=== PATIENT | female | born 1990 | race Caucasian/White ===

== ENCOUNTER → 2016-11-26 | Outpatient (CLI) | payer BC, OTHER ==
--- NOTE | 2016-11-27 18:10 | ECHOF ---
Referral Reason:R00.8 irregular heartbeat MEASUREMENTS -------- HEIGHT: 167.6 cm WEIGHT: 72.6 kg BP: 131/76 RVIDd: 2.9 cm (< 3.3) IVSd: 0.9 cm (0.6 - 1.1) LVIDd: 4.2 cm (3.9 - 5.3) LVPWd: 1.1 cm (0.6 - 1.1) IVSs: 1.3 cm LVIDs: 2.4 cm LVPWs: 1.8 cm LA Diam: 3.3 cm (2.7 - 3.8) Ao Diam: 2.9 cm (2.0 - 3.7) AV Cusp: 2.1 cm (1.5 - 2.6) MV EXCURSION: 12.972 mm (> 18.000) MV EF SLOPE: 83 mm/s (70 - 150) EPSS: 0.6 cm MV E Chung: 0.87 m/s MV DecT: 188 ms MV A Chung: 0.76 m/s MV E/A Ratio: 1.16 FINDINGS -------- Sinus rhythm. This was a technically good study. The left ventricular size is normal. Left ventricular wall thickness is normal. Overall left ventricular systolic function is normal with, an EF between 60 - 65 %. The right ventricle is normal in size. The left atrial size is normal. The right atrium is normal in size. The aortic valve is trileaflet and appears structurally normal. There is trace mitral regurgitation. Trace tricuspid regurgitation present. Trace/mild (physiologic) pulmonic regurgitation. The aortic root size is normal. Normal inferior vena cava with normal inspiratory collapse consistent with estimated right atrial pressure of 5 mmHg. There is no pericardial effusion. CONCLUSIONS -------- 1. Sinus rhythm. 2. There is trace mitral regurgitation. 3. Trace tricuspid regurgitation present. 4. Trace/mild (physiologic) pulmonic regurgitation. 5. The aortic root size is normal. 6. Normal inferior vena cava with normal inspiratory collapse consistent with estimated right atrial pressure of 5 mmHg. 7. There is no pericardial effusion. 8. This was a technically good study. 9. The left ventricular size is normal. 10. Left ventricular wall thickness is normal. 11. Overall left ventricular systolic function is normal with, an EF between 60 - 65 %. 12. The right ventricle is normal in size. 13. The left atrial size is normal. 14. The right atrium is normal in size. 15. The aortic valve is trileaflet and appears structurally normal. PC MAINTENANCE TECHNICIAN: Earlene Jimenez RDCS
== END | disposition home or self-care (01) ==
LOC: RADECHMAIN 14:58
PROVIDERS: ATTEND Internal Medicine
DX: I08.1 Rheumatic disorders of both mitral and tricuspid valves (principal)
CPT/HCPCS: 93306

== ENCOUNTER → 2017-12-07 | Outpatient (CLI) | payer OTHER ==
[2017-12-07 12:55] VITALS: BP 113/73; PULSE 97; TEMP 98.3; BMI 24.3
--- NOTE | 2017-12-07 14:03 | P.HPOB ---
History of Present Illness H&P Date: 12/07/17 Chief Complaint: The patient is here for her routine gynecologic exam and for control. This is a 27-year-old with an LMP of 11/30/2017. The patient is here to establish with this office. She is also requesting to be started on control pills. Patient previously used Nexplanon implant until February 2017. She has been using condoms for control since then. She also has used condoms regularly for STD prevention. She did not like the implant for control because she had frequent bleeding throughout the month while she was on it. Menses are regular every month. She has noticed some vulvar and vaginal pruritus after her menses. This typically has lasted just for a few days. This has occurred with her last 2 menses. She denies any significant discharge. Review of Systems The patient's weight has been stable over the last year. She denies respiratory , cardiac, or G.I. problems. Past Medical History Past Medical History: Asthma Additional Past Medical History / Comment(s): anemia. 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 She has not received the HPV vaccination. History of Any Multi-Drug Resistant Organisms: None Reported Past Surgical History: Tonsillectomy Past Anesthesia/Blood Transfusion Reactions: No Reported Reaction Past Psychological History: No Psychological Hx Reported Smoking Status: Never smoker Past Alcohol Use History: Occasional (0-2 per week) Past Drug Use History: None Reported Additional History: She is single and has been with her boyfriend since September 2017. She has had 2 other sexual partners in her lifetime. - Past Family History Mother Family Medical History: Cancer (Breast), Hypertension Brother(s) Additional Family Medical History / Comment(s): Kawasaki disease Father Family Medical History: Cancer (Skin) Additional Family Medical History / Comment(s): Her paternal grandfather had some type of blood clot. Medications and Allergies Home Medications Medication Instructions Recorded Confirmed Type No Known Home Medications 12/07/17 12/07/17 History Allergies Allergy/AdvReac Type Severity Reaction Status Date / Time No Known Allergies Allergy Verified 12/07/17 12:52 Exam Vital Signs Temp Pulse BP 12/07/17 12:53 98.3 F 97 113/73 Intake and Output 09/17/18 09/18/18 09/18/18 22:59 06:59 14:59 Other: Weight 68.492 kg Height 5'6", BMI 24.4. This is a well-developed well-nourished white female who is alert and oriented times 3 in no acute distress. HEENT: Within normal limits. NECK: Supple without mass or thyromegaly. CHEST AND LUNGS: Clear to auscultation. HEART: Regular rate and rhythm. BREASTS: Are without mass or discharge. AXILLARY EXAM: Negative for adenopathy. BACK: Negative for CVA tenderness. ABDOMEN: Soft, nontender, without palpable masses. PELVIC EXAM: Normal external genitalia. Cervix has a moderate ectropian without lesions. Vagina appears normal. There is a clear mucus discharge without older. There is no evidence of prolapse. The uterus is midposition, nongravid size and nontender. There are no palpable adnexal masses or tenderness. RECTAL EXAM: deferred EXTREMITIES: Nontender. What amounts are negative for trichomonas, hyphae, or clue cells. IMPRESSION: 1. 27-year-old female with normal gynecologic exam requesting control pills. 2. Intermittent vaginal and vulvar pruritus after her last 2 menses with no evidence of vaginitis at this time. PLAN: 1. Pap smear was performed. 2. Self breast awareness was discussed with the patient. 3. GC and Chlamydia screening was obtained from the cervix. 4. Blood STD screening will include HIV, RPR, hepatitis B surface antigen, and hepatitis C antibody. 5. STD prevention was discussed. I stressed the importance of limiting sexual partners and to use condoms if she is sexually active. 6. I recommended that she look into HPV vaccination and I recommended that she go to the health department for this. 7. The patient will be started on Tri-Sprintec. She will start on the Wednesday following the onset of her next normal menstrual period. I've recommended that she continue to use condoms even when she is on control pills. The prescription will be sentenced to [facility] pharmacy in [place]. She understands that this may slightly increase the risk for blood clots and symptoms of blood clots were reviewed with the patient. She was instructed to call if she has any problems with the control pills. 8. She will return in one year.
[2017-12-07 19:50] LABS: Hepatitis C IgG Antibody Non-Reactive (Non-Reactive)
[2017-12-07 20:54] LABS: HIV 1 AB Non-Reactive (Non-Reactive); HIV AB P24 Non-Reactive (Non-Reactive); HIV P24 AG Non-Reactive (Non-Reactive)
== END | disposition home or self-care (01) ==
LOC: WWCWWP 12:26
PROVIDERS: ATTEND Obstetrics & Gynecology
DX: Z11.3 Encounter for screening for infections with a predominantly sexual mode of transmission (principal)
CPT/HCPCS: 86780; 86803; 87340; 87390

== ENCOUNTER → 2019-01-20 | Outpatient (CLI) | payer OTHER ==
[2019-01-20 12:08] LABS: Basophils # (A) 0.3 k/uL (0-0.2); Basophils % (A) 3 %; Eosinophils # (A) 0.2 k/uL (0-0.7); Eosinophils % (A) 2 %; HCT 42.5 % (34.0-46.0); HGB 14.6 gm/dL (11.4-16.0); Lymphocytes % (A) 26 %; MCH 29.8 pg (25.0-35.0); MCHC 34.4 g/dL (31.0-37.0); MCV 86.7 fL (80.0-100.0); Mean Platelet Volume 7.9; Monocytes # (A) 0.5 k/uL (0-1.0); Monocytes % (A) 7 %; Neutrophils # (A) 4.6 k/uL (1.3-7.7); Neutrophils % (A) 59 %; Platelet Count 324 k/uL (150-450); RDW 11.7 % (11.5-15.5); WBC 7.8 k/uL (3.8-10.6)
[2019-01-20 12:15] LABS: ALT 29 U/L (9-52); AST 20 U/L (14-36); African American GFR (CKD) >90 (>60 ml/min/1.73 sqM); Albumin 4.6 g/dL (3.5-5.0); Albumin/Globulin Ratio 1.5; Alkaline Phosphatase 59 U/L (38-126); Anion Gap 9 mmol/L; Blood Urea Nitrogen 16 mg/dL (7-17); Carbon Dioxide 27 mmol/L (22-30); Chloride 105 mmol/L (98-107); Glucose 103 mg/dL (74-99); Potassium 3.8 mmol/L (3.5-5.1); Sodium 141 mmol/L (137-145); Total Bilirubin 0.5 mg/dL (0.2-1.3); Total Protein 7.6 g/dL (6.3-8.2)
[2019-01-20 13:47] LABS: Erythrocyte Sedimentation Rate 2 mm/hr (0-20)
== END | disposition home or self-care (01) ==
LOC: LABWHC1 11:37
PROVIDERS: ATTEND Physician Assistant
DX: J18.0 Bronchopneumonia, unspecified organism (principal); R06.00 Dyspnea, unspecified
CPT/HCPCS: 36415; 80053; 85025; 85379; 85652

== ENCOUNTER → 2019-02-14 | Outpatient (CLI) | payer OTHER ==
[2019-02-14 14:50] VITALS: BP 123/85; PULSE 88; RESP 16; TEMP 98
--- NOTE | 2019-02-14 15:32 | P.HPOB ---
History of Present Illness H&P Date: 02/14/19 Chief Complaint: The patient is here for her routine gynecologic exam and for control This is a 28-year-old with an LMP of 01/31/2019. The patient is without gynecologic complaints. She states she is doing well on the control pills. Menses are regular every month. Review of Systems The patient's weight has been stable over the last year. She denies respiratory, cardiac, or G.I. problems. Past Medical History Past Medical History: Asthma Additional Past Medical History / Comment(s): anemia. 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 She has completed 2 of the 3 HPV vaccination series. History of Any Multi-Drug Resistant Organisms: None Reported Past Surgical History: Tonsillectomy Past Anesthesia/Blood Transfusion Reactions: No Reported Reaction Past Psychological History: No Psychological Hx Reported Smoking Status: Never smoker Past Alcohol Use History: Occasional (3 per month) Past Drug Use History: None Reported Additional History: She is engaged to be and has been with her fianc since September 2017. Her wedding will be in September 2019. 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 - Past Family History Father Family Medical History: Cancer Additional Family Medical History / Comment(s): Skin cancer. Her paternal grandfather had some type of blood clot. Mother Family Medical History: Cancer, Hypertension Additional Family Medical History / Comment(s): Breast cancer. Brother(s) Additional Family Medical History / Comment(s): Kawasaki disease Medications and Allergies Home Medications Medication Instructions Recorded Confirmed Type Norgestimate-Ethinyl Estradiol 1 each PO DAILY #84 tablet 12/07/17 02/14/19 Rx [Tri-Sprintec Tablet] Iron 18 mg PO DAILY 02/14/19 02/14/19 History Allergies Allergy/AdvReac Type Severity Reaction Status Date / Time No Known Allergies Allergy Verified 12/07/17 12:52 Exam Vital Signs Temp Pulse Resp BP Pulse Ox 02/14/19 14:47 98.0 F 88 16 123/85 99 Intake and Output 02/14/19 02/14/19 02/14/19 06:59 14:59 22:59 Other: Weight 69.4 kg Height 5 feet 6 inches, weight 153 pounds, BMI 24.7. This is a well-developed well-nourished white female who is alert and oriented times 3 in no acute distress. HEENT: Within normal limits. NECK: Supple without mass or thyromegaly. CHEST AND LUNGS: Clear to auscultation. HEART: Regular rate and rhythm. BREASTS: Are without mass or discharge. AXILLARY EXAM: Negative for adenopathy. BACK: Negative for CVA tenderness. ABDOMEN: Soft, nontender, without palpable masses. PELVIC EXAM: Normal external genitalia. Cervix and vagina appear normal. There is a slightly increased amount of creamy cervical mucus. The cervix does not appear inflamed. There is no cervical motion tenderness. There is no evidence of prolapse. The uterus is midposition, nongravid size and nontender. There are no palpable adnexal masses or tenderness. RECTAL EXAM: Deferred. EXTREMITIES: Nontender. IMPRESSION: 1. 28-year-old female doing well on oral contraception. 2. Slight mucous discharge in the vagina. PLAN: 1. Pap smear was deferred since she had a normal one on 12/07/2017. 2. Self breast awareness was discussed with the patient. 3. GC and chlamydia screening was obtained from the cervix. 4. She will complete her HPV vaccination series. 5. Continue Tri-Sprintec for control. The electronic prescription will be sent to my her pharmacy in [place]. 6. She states she may be contemplating attempting in the next 2 years. We have discussed preconception planning. I have recommended that she take a multivitamin with folic acid. She will also keep a menstrual calendar. It will be important that she discuss it with her doctor that she may be attempting if she is prescribed any medication. 7. She was advised to return in one year for her annual well woman exam.
[2019-02-16 07:48] LABS: C. trachomatis,PCR Negative (Neg,Equiv); Chlamydia trachomatis Source Cervix; N. gonorrhoeae,PCR Negative (Neg,Equiv); Neisseria Source Cervix
== END | disposition home or self-care (01) ==
LOC: WWCWWP 14:36
PROVIDERS: ATTEND Obstetrics & Gynecology
DX: Z11.3 Encounter for screening for infections with a predominantly sexual mode of transmission (principal)
CPT/HCPCS: 87491; 87591

== ENCOUNTER 2019-11-16 21:18 | Emergency (ER) | payer BC, OTHER ==
[2019-11-16 21:32] VITALS: RESP 16
[2019-11-16] MEDS ORDERED: SODIUM CHLORIDE 0.9% 1,000 ML IV ONE (22:14)
[2019-11-16] MEDS ORDERED: Rhogam IMMUNE GLOBULIN 1,500 UNIT/1 ML IM ONE (22:15)
[2019-11-16 22:37] LABS: Basophils # (A) 0.1 k/uL (0-0.2); Basophils % (A) 0 %; Eosinophils # (A) 0.3 k/uL (0-0.7); Eosinophils % (A) 2 %; HCT 39.7 % (34.0-46.0); HGB 13.4 gm/dL (11.4-16.0); Lymphocytes # (A) 2.3 k/uL (1.0-4.8); Lymphocytes % (A) 18 %; MCH 29.1 pg (25.0-35.0); MCHC 33.8 g/dL (31.0-37.0); Mean Platelet Volume 9.1; Monocytes # (A) 0.8 k/uL (0-1.0); Monocytes % (A) 6 %; Neutrophils # (A) 9.2 k/uL (1.3-7.7); Neutrophils % (A) 72 %; Platelet Count 278 k/uL (150-450); RBC 4.61 m/uL (3.80-5.40); RDW 11.9 % (11.5-15.5); WBC 12.8 k/uL (3.8-10.6)
[2019-11-16 22:44] LABS: Appearance,Urine Bloody (Clear)
[2019-11-16 22:46] LABS: ALT 19 U/L (4-34); AST 25 U/L (14-36); African American GFR (CKD) >90 (>60 ml/min/1.73 sqM); Albumin 4.7 g/dL (3.5-5.0); Alkaline Phosphatase 51 U/L (38-126); Anion Gap 9 mmol/L; Blood Urea Nitrogen 8 mg/dL (7-17); Calcium 10.1 mg/dL (8.4-10.2); Carbon Dioxide 23 mmol/L (22-30); Chloride 105 mmol/L (98-107); Color,Urine Red; Glucose 98 mg/dL (74-99); Non-African American GFR(CKD) >90 (>60 ml/min/1.73 sqM); RBC,Urine >152 /hpf (0-5); Sodium 137 mmol/L (137-145); Total Bilirubin 0.3 mg/dL (0.2-1.3)
[2019-11-16 22:49] LABS: INR 1.1 (<1.2); Prothrombin Time 11.3 sec (9.0-12.0)
--- NOTE | 2019-11-16 22:57 | ED ---
General Adult HPI - General Chief complaint: Vaginal Bleeding Stated complaint: Poss Miscarriage Time Seen by Provider: 11/16/19 21:34 Source: patient Mode of arrival: ambulatory Limitations: no limitations - History of Present Illness Initial comments: 29-year-old female [facility] of vaginal bleeding. Patient reports that she is 5 weeks as confirmed with vaginal ultrasound yesterday; she is . Patient states she began spotting yesterday after the ultrasound and continued throughout the day. Developed lower abdominal cramping and heavy bleeding approximately 30 minutes prior to arrival. States she has saturated 2 pads in the last 30 minutes. Patient denies injury or trauma. Complains of mild nausea. Patient denies any recent rash, fever, chills, cough, shortness of breath, chest pain, diarrhea, constipation, back pain, numbness, tingling, dizziness, weakness, hematuria, dysuria, urinary urgency, urinary frequency, headache, visual changes, or any other complaints. - Related Data Home Medications Medication Instructions Recorded Confirmed Acetaminophen Tab [Tylenol] 650 mg PO BID PRN 11/16/19 11/16/19 Rcc-Xuou-Dyaxh Acid 1 cap PO DAILY 11/16/19 11/16/19 [-U Capsule (formulary)] Allergies Allergy/AdvReac Type Severity Reaction Status Date / Time cefaclor [From [facility]] Allergy Unknown Verified 11/16/19 22:35 Childhood Review of Systems ROS Statement: Those systems with pertinent positive or pertinent negative responses have been documented in the HPI. ROS Other: All systems not noted in ROS Statement are negative. Past Medical History Past Medical History: Asthma Additional Past Medical History / Comment(s): anemia. 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 She has completed 2 of the 3 HPV vaccination series. History of Any Multi-Drug Resistant Organisms: None Reported Past Surgical History: Tonsillectomy Past Anesthesia/Blood Transfusion Reactions: No Reported Reaction Past Psychological History: No Psychological Hx Reported Past Alcohol Use History: Occasional Past Drug Use History: None Reported - Past Family History Father Family Medical History: Cancer Additional Family Medical History / Comment(s): Skin cancer. Her paternal grandfather had some type of blood clot. Mother Family Medical History: Cancer, Hypertension Additional Family Medical History / Comment(s): Breast cancer. Brother(s) Additional Family Medical History / Comment(s): Kawasaki disease General Exam Limitations: no limitations General appearance: alert (this is a), in no apparent distress, other Head exam: Present: atraumatic, normocephalic, normal inspection Eye exam: Present: normal appearance, PERRL, EOMI. Absent: scleral icterus, conjunctival injection, periorbital swelling ENT exam: Present: normal exam, mucous membranes moist Respiratory exam: Present: normal lung sounds bilaterally. Absent: respiratory distress, wheezes, rales, rhonchi, stridor Cardiovascular Exam: Present: regular rate, normal rhythm, tachycardia, normal heart sounds. Absent: systolic murmur, diastolic murmur, rubs, gallop, clicks GI/Abdominal exam: Present: soft, normal bowel sounds Speculum exam: Present: vaginal bleeding, other (copious amounts of bright red vaginal bleeding with several clots present. Possible tissue removed from cervical os which is closed. ) Neurological exam: Present: alert, oriented X3 Psychiatric exam: Present: anxious, other (tearful) Skin exam: Present: warm, dry, intact Course Vital Signs 11/16/19 11/16/19 21:25 23:34 Temperature 99.3 F 98.2 F Pulse Rate 108 H 86 Respiratory 16 16 Rate Blood Pressure 126/87 98/63 O2 Sat by Pulse 97 97 Oximetry Medical Decision Making - Medical Decision Making 29-year-old female presents to the emergency department [facility] with complaints of heavy vaginal bleeding. Patient is 5 weeks , . Pelvic exam significant for copious amounts of bright red bleeding with many large clots, cervical os was closed. Ultrasound obtained and showed no intrauterine gestational sac visualized, no evidence of ectopic . [place] [address].3. Patient was given RhoGAM IM prior to departure for lab confirmed O negative blood. Bleeding did decrease and patient was comfortable while in the department. Instructed to call [facility]NAGER [facility] in the morning for follow-up. Order provided for repeat hCG in 48 hours. Patient was instructed to return to the emergency department if saturating more than 1 pad per hour for greater than 3 hours, or if she developed dizziness, or increased discomfort. Patient verbalizes understanding and agrees with this plan. - Lab Data Result diagrams: 11/16/19 22:28 11/16/19 22:28 Lab Results 11/16/19 11/16/19 11/16/19 Range/Units 22:25 22:28 22:28 WBC 12.8 H (3.8-10.6) k/uL RBC 4.61 (3.80-5.40) m/uL Hgb 13.4 (11.4-16.0) gm/dL Hct 39.7 (34.0-46.0) % MCV 86.0 (80.0-100.0) fL MCH 29.1 (25.0-35.0) pg MCHC 33.8 (31.0-37.0) g/dL RDW 11.9 (11.5-15.5) % Plt Count 278 (150-450) k/uL Neutrophils % 72 % Lymphocytes % 18 % Monocytes % 6 % Eosinophils % 2 % Basophils % 0 % Neutrophils # 9.2 H (1.3-7.7) k/uL Lymphocytes # 2.3 (1.0-4.8) k/uL Monocytes # 0.8 (0-1.0) k/uL Eosinophils # 0.3 (0-0.7) k/uL Basophils # 0.1 (0-0.2) k/uL PT 11.3 (9.0-12.0) sec INR 1.1 (<1.2) APTT 25.0 (22.0-30.0) sec Sodium (137-145) mmol/L Potassium (3.5-5.1) mmol/L Chloride (98-107) mmol/L Carbon Dioxide (22-30) mmol/L Anion Gap mmol/L BUN (7-17) mg/dL Creatinine (0.52-1.04) mg/dL Est GFR (CKD-EPI)AfAm (>60 ml/min/1.73 sqM) Est GFR (CKD-EPI)NonAf (>60 ml/min/1.73 sqM) Glucose (74-99) mg/dL Calcium (8.4-10.2) mg/dL Total Bilirubin (0.2-1.3) mg/dL AST (14-36) U/L ALT (4-34) U/L Alkaline Phosphatase (38-126) U/L Total Protein (6.3-8.2) g/dL Albumin (3.5-5.0) g/dL HCG, Quant mIU/mL Urine Color Urine Appearance (Clear) Urine RBC (0-5) /hpf Blood Type O Negative Blood Type Recheck O Neg Bld Type Recheck Status No Antibody Screen NEGATIVE 11/16/19 11/16/19 Range/Units 22:28 22:28 WBC (3.8-10.6) k/uL RBC (3.80-5.40) m/uL Hgb (11.4-16.0) gm/dL Hct (34.0-46.0) % MCV (80.0-100.0) fL MCH (25.0-35.0) pg MCHC (31.0-37.0) g/dL RDW (11.5-15.5) % Plt Count (150-450) k/uL Neutrophils % % Lymphocytes % % Monocytes % % Eosinophils % % Basophils % % Neutrophils # (1.3-7.7) k/uL Lymphocytes # (1.0-4.8) k/uL Monocytes # (0-1.0) k/uL Eosinophils # (0-0.7) k/uL Basophils # (0-0.2) k/uL PT (9.0-12.0) sec INR (<1.2) APTT (22.0-30.0) sec Sodium 137 (137-145) mmol/L Potassium 4.0 (3.5-5.1) mmol/L Chloride 105 (98-107) mmol/L Carbon Dioxide 23 (22-30) mmol/L Anion Gap 9 mmol/L BUN 8 (7-17) mg/dL Creatinine 0.49 L (0.52-1.04) mg/dL Est GFR (CKD-EPI)AfAm >90 (>60 ml/min/1.73 sqM) Est GFR (CKD-EPI)NonAf >90 (>60 ml/min/1.73 sqM) Glucose 98 (74-99) mg/dL Calcium 10.1 (8.4-10.2) mg/dL Total Bilirubin 0.3 (0.2-1.3) mg/dL AST 25 (14-36) U/L ALT 19 (4-34) U/L Alkaline Phosphatase 51 (38-126) U/L Total Protein 7.0 (6.3-8.2) g/dL Albumin 4.7 (3.5-5.0) g/dL HCG, Quant 48372.3 mIU/mL Urine Color Red Urine Appearance Bloody H (Clear) Urine RBC >152 H (0-5) /hpf Blood Type Blood Type Recheck Bld Type Recheck Status Antibody Screen - Radiology Data Radiology results: report reviewed Pelvic ultrasound was obtained. Report was reviewed in its entirety. Impression by Dr. Oneal shows no intrauterine gestational sac. No evidence of ectopic . Mild endometrial thickening measures up to 1.5 cm. Disposition Clinical Impression: Threatened Disposition: HOME SELF-CARE Condition: Good Instructions (If sedation given, give patient instructions): Threatened Miscarriage (ED) Additional Instructions: Have repeat lab tests performed in 2 days. Follow-up with [facility] for recheck in 1-2 days. Maintain pelvic rest until follow-up with your MANAGER [facility]ING. Call Dr. Villatoro in the morning and inform her of your bleeding and symptoms. Return to the emergency department immediately for any new, worsening, or concerning symptoms. Is patient prescribed a controlled substance at d/c from ED?: No Referrals: Samm Bonilla MD [Primary Care Provider] - 1-2 days Magalys Villatoro MD [STAFF PHYSICIAN] - 1-2 days Time of Disposition: 00:12
--- NOTE | 2019-11-16 23:20 | US ---
EXAMINATION TYPE: Transabdominal DATE OF EXAM: 11/16/2019 11:03 PM COMPARISON: NONE CLINICAL HISTORY: Vag bleeding, 5 weeks. heavy vaginal bleeding today, pelvic pain. patient states ul trasound done at doctors office yesterday and a 6 week gestational sac was visualized EXAM PERFORMED: Transvaginal (TV) and Transabdominal (TA) EXAM MEASUREMENTS: GESTATIONAL AGE / DATING Physician Established: Not yet established Dates by LMP: (8 weeks/6 days) EDC: 06/21/20 Dates by First Scan: No previous scan here Dates by Current Scan for: No IUP seen at this time MATERNAL ANATOMY Uterus: 9.0 x 5.2 x 4.9cm Right Ovary: 3.6 x 1.9 x 2.0cm Left Ovary: 2.5 x 1.4 x 1.6cm Post CDS / Adnexa: appears wnl Presence of free fluid: no Presence of corpus luteal cyst: yes, complex area right ovary = 2.4 x 2.1 x 2.3cm GESTATION / SURVEY IUP: No IUP seen at this time Date of LMP: 09/15/19 Beta HcG (if available): Not available at this time No evidence of IUP at this time. Heterogeneous, thickened and vascular endometrium. Corpus luteum right ovary IMPRESSION: No intrauterine gestational sac. No evidence of ectopic . Mild endometrial thickening measur es up to 1.5 cm.
[2019-11-16 23:35] VITALS: BP 98/63; PULSE 86; TEMP 98.2
[2019-11-16 23:40] LABS: HCG,Quantitative Serum 25750.3 mIU/mL
== END 2019-11-17 00:15 | disposition home or self-care (01) ==
LOC: EC 21:18
DX: O20.0 Threatened abortion (principal); Z3A.01 Less than 8 weeks gestation of pregnancy; Z88.1 Allergy status to other antibiotic agents
CPT/HCPCS: 36415; 76801; 76817; 80053; 84702; 85025; 85610; 85730; 86850; 86900; 86901; 87086; 96360; 96372; 99284

== ENCOUNTER → 2020-02-27 | Outpatient (CLI) | payer BC, OTHER ==
[~2020-02-27] MED LIST: Pre Op ABX Message 1 EACH MISC MISCELLANE ONE
[2020-02-27 13:59] LABS: Basophils % (A) 0 %; Eosinophils # (A) 0.1 k/uL (0-0.7); Eosinophils % (A) 1 %; HGB 12.8 gm/dL (11.4-16.0); Lymphocytes # (A) 1.4 k/uL (1.0-4.8); Lymphocytes % (A) 20 %; MCHC 33.7 g/dL (31.0-37.0); MCV 79.9 fL (80.0-100.0); Mean Platelet Volume 9.2; Monocytes # (A) 0.5 k/uL (0-1.0); Monocytes % (A) 7 %; Neutrophils # (A) 4.9 k/uL (1.3-7.7); Neutrophils % (A) 70 %; Platelet Count 237 k/uL (150-450); RBC 4.76 m/uL (3.80-5.40); RDW 13.4 % (11.5-15.5); WBC 6.9 k/uL (3.8-10.6)
[2020-02-28 11:35] LABS: APTT 46 Sec(s) (<43); APTT 1:1 Mix 38 Sec(s) (<43); Dilute Russell Viper Venom 42 Sec(s) (<44)
== END | disposition home or self-care (01) ==
LOC: LABPAT 12:29
PROVIDERS: ATTEND Obstetrics & Gynecology
DX: Z01.818 Encounter for other preprocedural examination (principal); O02.1 Missed abortion
CPT/HCPCS: 81241; 85025; 85300; 85613; 85730; 86038; 86850; 86870; 86880; 86900; 86901

== ENCOUNTER → 2020-07-05 | Outpatient (CLI) | payer BC, OTHER ==
--- NOTE | 2020-07-05 10:18 | US ---
EXAMINATION TYPE: Ultrasound OB <= 14 weeks transvaginal DATE OF EXAM: 07/05/2020 10:02 AM COMPARISON: NONE CLINICAL HISTORY: 30-year-old female O76.1 Absent heartbeats. No heart tones at office, , multipl e miscarriages in the past 8 months EXAM PERFORMED: OBTA/OBTV FINDINGS: EXAM MEASUREMENTS: GESTATIONAL AGE / DATING Physician Established: Not yet established Dates by LMP: (10 weeks/5 days) EDC: 01/26/2021 Dates by First Scan: No previous this is first scan Handy Worker notes: Dates by Current Scan: demise MATERNAL ANATOMY Uterus: 10.5 x 8.7 x 9.3cm Right Ovary: 2.1 x 1.9 x 1.3cm Left Ovary: not seen Post CDS / Adnexa: wnl Presence of free fluid: no Presence of corpus luteal cyst: 1.6cm on the right Presence of subchorionic bleed: no GESTATION / SURVEY CRL: 3.1cm, 10 weeks/0 days) MSD: multiple septation seen within gestational sac Yolk Sac (normal less than 6mm): not seen Heart Rate: 0 by M-mode Doppler. No color Doppler activity. IUP: Demise Date of LMP: 04/21/2020 IMPRESSION: Intrauterine . pole measures 3.1 cm corresponding to 10 weeks 0 days. However, there i s no cardiac activity. There are also multiple septations within the gestational sac. No yolk sac is identified. Findings in keeping with demise.
== END | disposition home or self-care (01) ==
LOC: RADUSWWP 09:42
PROVIDERS: ATTEND Obstetrics & Gynecology
DX: O36.8310 Maternal care for abnormalities of the fetal heart rate or rhythm, first trimester, not applicable or unspecified (principal); Z3A.10 10 weeks gestation of pregnancy
CPT/HCPCS: 76801; 76817

== ENCOUNTER → 2020-07-08 | Outpatient (CLI) | payer BC, OTHER ==
[2020-07-08 10:28] LABS: Basophils % (A) 0 %; Eosinophils # (A) 0.1 k/uL (0-0.7); Eosinophils % (A) 2 %; HCT 33.5 % (34.0-46.0); HGB 10.9 gm/dL (11.4-16.0); Lymphocytes # (A) 1.4 k/uL (1.0-4.8); Lymphocytes % (A) 27 %; MCH 24.1 pg (25.0-35.0); MCHC 32.5 g/dL (31.0-37.0); Mean Platelet Volume 9.9; Microcytosis Slight; Monocytes # (A) 0.4 k/uL (0-1.0); Monocytes % (A) 8 %; Neutrophils # (A) 3.3 k/uL (1.3-7.7); Neutrophils % (A) 63 %; Platelet Count 253 k/uL (150-450); RBC 4.53 m/uL (3.80-5.40); RDW 15.3 % (11.5-15.5); WBC 5.3 k/uL (3.8-10.6)
== END | disposition home or self-care (01) ==
LOC: LABPAT 08:50
PROVIDERS: ATTEND Obstetrics & Gynecology
DX: Z01.818 Encounter for other preprocedural examination (principal); O02.1 Missed abortion; Z3A.00 Weeks of gestation of pregnancy not specified
CPT/HCPCS: 36415; 85025; 86850; 86900; 86901

== ENCOUNTER 2020-07-10 10:52 | Day surgery (SDC) | payer BC, OTHER ==
[2020-07-09 08:45] VITALS: BMI 24.2
[~2020-07-10 10:52] MED LIST changes: +DEXAMETHASONE SOD PHOSPHATE 4 MG/ML 1 ML VIAL IV ONE; +LIDOCAINE 1% (10MG/ML) FOR IV START INTRADERMA PRN; +ONDANSETRON 4 MG/2 ML VIAL IVP ONE
[2020-07-10] MEDS: LACTATED RINGERS 1,000 ML IV SCH ×2 (11:32→11:58)
[2020-07-10] MEDS ORDERED: PROPOFOL 10 MG/ML 20 ML VIAL IV ONE (11:53)
[2020-07-10] MEDS ORDERED: fentaNYL (PF) 50 MCG/ML 2 ML AMP ONE (11:53)
[2020-07-10] MEDS ORDERED: LIDOCAINE 1% INJ 10MG/ML (20 ML MDV) ONE (11:53)
[2020-07-10] MEDS ORDERED: MIDAZOLAM 2 MG/2 ML VIAL ONE (11:53)
[2020-07-10] MEDS ORDERED: KETOROLAC 15 MG/ML 1 ML VIAL ONE (11:53)
--- NOTE | 2020-07-10 12:30 | P.OP ---
Date of Procedure: 07/10/20 Preoperative Diagnosis: Missed AB at 10-3/7 weeks' gestation, third spontaneous miscarriage, Rh- blood type Postoperative Diagnosis: Same Procedure(s) Performed: Suction dilatation and curettage, Anora chromosomal testing per patient and Dr. Nye's request Anesthesia: BIA Surgeon: Magalys Villatoro Estimated Blood Loss (ml): 200 IV fluids (ml): 400 Urine output (ml): 100 Pathology: other (Intrauterine contents) Condition: stable Disposition: PACU Description of Procedure: Patient is brought to the operating suite where a general anesthetic is administered without difficulty. She's placed in the dorsal lithotomy position. The appropriate timeout is performed to assure proper patient and procedural identification. Patient is Rh-, Rogaine has already been given in the office. Antibiotics are not deemed necessary. Examination under anesthesia reveals an anteverted uterus of approximately 12 weeks size. Cervix, vagina, perineal bodies are all prepped and draped in usual sterile fashion. Bladder is drained for 100 mL of clear yellow urine. Weighted speculum was placed into the vagina. Anterior lip of the cervix is grasped with a double- tooth tenaculum. Cervix sounds to a depth of 16 cm in the anteverted position. Cervix is gently and systematically dilated using Hanks dilators. A #9 curved sterile curette is placed to the dome of the fundus and under appropriate pressures the uterine cavity is curettaged. A sharp medium sized curette is used and all 4 quadrants to assure that all products of conception had been removed. The curved plastic curet is once again placed, suction reveals no additional tissue or bleeding. Instrumentation is removed from the vagina. Cervix is clean and dry. All sponge needle and enhancement counts are correct. Patient is brought back to recovery room in very good condition with stable vital signs including a blood pressure of 100/57 pulse 89 and 99% O2 saturation. She will follow-up with me in the office in 2 weeks. Tissue was sent for chromosomal analysis per patient's request. Copies will be sent to Dr. Magalys Nye at [facility], infertility specialist. Toradol is given prior to leaving the operative room.
[2020-07-10 12:38] VITALS: TEMP 97.1
[2020-07-10 13:08] VITALS: RESP 18
[2020-07-10 13:36] VITALS: BP 110/78; PULSE 78
== END 2020-07-10 13:53 | disposition home or self-care (01) ==
LOC: OR 10:52
PROVIDERS: ATTEND Obstetrics & Gynecology
DX: O02.1 Missed abortion (principal); Z67.20 Type B blood, Rh positive; Z86.16 Personal history of COVID-19; G43.909 Migraine, unspecified, not intractable, without status migrainosus; M41.9 Scoliosis, unspecified; Z90.89 Acquired absence of other organs; Z82.49 Family history of ischemic heart disease and other diseases of the circulatory system; Z83.3 Family history of diabetes mellitus; Z80.3 Family history of malignant neoplasm of breast; Z98.890 Other specified postprocedural states; Z79.82 Long term (current) use of aspirin; Z88.1 Allergy status to other antibiotic agents; Z91.040 Latex allergy status
CPT/HCPCS: 88305; 59820; J2250; J1100; J2405; J2001; J3010; J1885; J2704; 86850; 86900; 86901

== ENCOUNTER → 2020-07-26 | Outpatient (CLI) | payer BC, OTHER | END | disposition home or self-care (01) | LOC: LABWHC1 15:47 | PROVIDERS: ATTEND Obstetrics & Gynecology | DX: O02.1 Missed abortion (principal); Z3A.00 Weeks of gestation of pregnancy not specified | CPT/HCPCS: 36415; 84702 ==

== ENCOUNTER → 2020-09-25 | Outpatient (CLI) | payer BC, OTHER ==
[2020-09-26 03:01] LABS: Cardiolipin Ab IgG Interp NEGATIVE (NEGATIVE); Cardiolipin Ab IgM Interp NEGATIVE (NEGATIVE); Cardiolipin IgA Antibody <2.0 U/mL; Cardiolipin IgM Antibody <1.5 U/mL
[2020-09-27 09:41] LABS: Protein C (Activity) 101 % (71-138)
== END | disposition home or self-care (01) ==
LOC: LABWHC1 16:08
PROVIDERS: ATTEND Obstetrics & Gynecology
DX: N96 Recurrent pregnancy loss (principal)
CPT/HCPCS: 36415; 81240; 85303; 85306; 86147

== ENCOUNTER 2021-07-14 15:45 | Emergency (ER) | payer BC, OTHER ==
[2021-07-14] MEDS ORDERED: ACETAMINOPHEN TAB 500 MG TAB PO STA (17:10)
[2021-07-14] MEDS ORDERED: SODIUM CHLORIDE 0.9% 1,000 ML IV ONE (20:11)
--- NOTE | 2021-07-14 20:11 | ED ---
Fever HPI - General Chief Complaint: Fever Stated Complaint: Fever, Nausea, Weakness, Back pain, 15 weeks preg. Time Seen by Provider: 07/14/21 19:47 Source: patient Mode of arrival: ambulatory Limitations: no limitations - History of Present Illness Initial Comments: Denice is a pleasant 31-year-old female currently 15 weeks from that was given CV IVF. Patient since the emergency department today for fever back pains generalized feeling unwell. The patient is not vaccinated for COVID-19. - Related Data Home Medications Medication Instructions Recorded Confirmed Nhx-Pgmq-Pesmc Acid 1 cap PO DAILY 11/16/19 07/14/21 [-U Capsule (formulary)] Allergies Allergy/AdvReac Type Severity Reaction Status Date / Time cefaclor [From [facility]] Allergy Unknown Verified 07/14/21 21:28 Childhood latex Allergy red skin Verified 07/14/21 21:28 Review of Systems ROS Statement: Those systems with pertinent positive or pertinent negative responses have been documented in the HPI. ROS Other: All systems not noted in ROS Statement are negative. Past Medical History Past Medical History: Asthma, Musculoskeletal Disorder Additional Past Medical History / Comment(s): current missed AB, anemia. hx miscarriage Oct 2019, PAST TRANSPORTATION OFFICER HISTORY: She has no history of STDs. She has completed 2 of the 3 HPV vaccination series, scoliosis,DDD, migraines History of Any Multi-Drug Resistant Organisms: None Reported Past Surgical History: Tonsillectomy Additional Past Surgical History / Comment(s): wisdom teeth removed, oral surg. as child Past Anesthesia/Blood Transfusion Reactions: No Reported Reaction Past Psychological History: No Psychological Hx Reported Smoking Status: Never smoker Past Alcohol Use History: None Reported Past Drug Use History: None Reported - Past Family History Father Family Medical History: No Reported History Additional Family Medical History / Comment(s): Skin cancer. Her paternal grandfather had some type of blood clot. Mother Family Medical History: Cancer, Hypertension Additional Family Medical History / Comment(s): Breast cancer. Brother(s) Additional Family Medical History / Comment(s): Kawasaki disease General Exam - General Exam Comments Initial Comments: Physical Exam GENERAL: Febrile, appears ill HENT: Normocephalic, Atraumatic. EYES: PERRL, EOMI PULMONARY: Unlabored respirations. CARDIOVASCULAR: Tachycardic Warm and well perfused extremities ABDOMEN: Gravid abdomen SKIN: No rashes or bruising : Deferred NEUROLOGIC: Alert and oriented Normal speech Normal gait MUSCULOSKELETAL: Moving all extremities with no apparent injury PSYCHIATRIC: No SI/HI Limitations: no limitations Course Vital Signs 07/14/21 07/14/21 17:05 22:52 Temperature 101.5 F H 98.7 F Pulse Rate 117 H 89 Respiratory 20 16 Rate Blood Pressure 140/80 118/74 O2 Sat by Pulse 100 98 Oximetry Medical Decision Making - Medical Decision Making Patient was seen and evaluated, fever was treated with Tylenol Patient's positive or COVID-19, IV fluids were ordered Risks and benefits of monoclonal antibodies were discussed patient would like to pursue treatment with monoclonal antibodies Patient received IV fluids, she received monoclonal shortly after the IV push she reported feeling flushed and chest pressure in her chest, there is concerned she may be having a ALLERGIC reaction so she was given steroids and Benadryl. Upon my evaluation she is feeling better only moments later, she had no wheezing, no rashes no nausea or vomiting. Patient was observed for another approximately 90 minutes with no further reaction she is feeling well, fever resolved heart rate improved bedside ultrasound reveals an active fetus with a heart rate of 170 at this time patient feels reassured and is comfortable with plan for discharge home and outpatient follow-up with OB - Lab Data Lab Results 07/14/21 Range/Units 17:16 Coronavirus (PCR) Detected A (Not Detectd) Disposition Clinical Impression: COVID-19 affecting in second trimester Disposition: HOME SELF-CARE Condition: Stable Additional Instructions: Continue Tylenol 650mg every 6hrs Notify OB tomorrow of diagnosis Is patient prescribed a controlled substance at d/c from ED?: No Referrals: Nohemi Ny MD [Primary Care Provider] - 1-2 days
[2021-07-14] MEDS ORDERED: BEBTELOVIMAB (EUA) 175 MG/2 ML VIAL IV ONE (21:30)
[2021-07-14] MEDS ORDERED: methylPREDNISolone SOD SUCCI 125 MG/2 ML VIAL IV STA (21:33)
[2021-07-14] MEDS ORDERED: diphenhydrAMINE 50 MG/ML 1 ML VIAL IVP STA (21:33)
[2021-07-14 22:53] VITALS: BP 118/74; PULSE 89; RESP 16; TEMP 98.7
== END 2021-07-14 23:14 | disposition home or self-care (01) ==
LOC: EC 15:45
DX: O98.512 Other viral diseases complicating pregnancy, second trimester (principal); U07.1 COVID-19; O99.512 Diseases of the respiratory system complicating pregnancy, second trimester; J45.909 Unspecified asthma, uncomplicated; Z28.310 Unvaccinated for COVID-19; Z3A.15 15 weeks gestation of pregnancy
CPT/HCPCS: 87635; 99283; 96374; 96375; 96361; J1200; J2930; Q0222

== ENCOUNTER → 2022-04-08 | Outpatient (CLI) | payer BC, OTHER | END | disposition home or self-care (01) | LOC: LABWHC1 16:12 | PROVIDERS: ATTEND Obstetrics & Gynecology Reproductive Endocrinology | DX: Z01.812 Encounter for preprocedural laboratory examination (principal) | CPT/HCPCS: 36415; 82306; 83036 ==

== ENCOUNTER 2022-12-24 12:00 | Outpatient (CLI) | payer BC, OTHER ==
[2022-12-24 13:28] LABS: ALT 20 U/L (4-34); AST 31 U/L (14-36); African American GFR (CKD) >90 (>60 ml/min/1.73 sqM); Basophils % (A) 0 %; Blood Urea Nitrogen 7 mg/dL (7-17); Eosinophils # (A) 0.1 k/uL (0-0.7); Eosinophils % (A) 1 %; HCT 35.9 % (34.0-46.0); HGB 12.1 gm/dL (11.4-16.0); LDH 226 U/L (120-246); Lymphocytes # (A) 1.3 k/uL (1.0-4.8); Lymphocytes % (A) 16 %; MCH 25.7 pg (25.0-35.0); MCHC 33.6 g/dL (31.0-37.0); MCV 76.5 fL (80.0-100.0); Mean Platelet Volume 12.8; Microcytosis Slight; Monocytes # (A) 0.5 k/uL (0-1.0); Monocytes % (A) 6 %; Neutrophils # (A) 5.9 k/uL (1.3-7.7); Neutrophils % (A) 75 %; Non-African American GFR(CKD) >90 (>60 ml/min/1.73 sqM); RBC 4.69 m/uL (3.80-5.40); RDW 15.5 % (11.5-15.5); Uric Acid 5.4 mg/dL (3.7-7.4); WBC 7.9 k/uL (3.8-10.6)
[2022-12-24 13:40] LABS: Appearance,Urine Clear (Clear); Bilirubin,Urine Negative (Negative); Blood,Urine Negative (Negative); Color,Urine Colorless; Glucose,Urine (UA) Negative (Negative); Ketones,Urine Negative (Negative); Leukocyte Esterase,Urine Negative (Negative); Nitrite,Urine Negative (Negative); PH, Urine 6.5 (5.0-8.0); Protein,Urine Negative (Negative); Specific Gravity,Urine 1.005 (1.001-1.035); Urobilinogen,Urine <2.0 mg/dL (<2.0)
[2022-12-24 13:59] LABS: Creatinine,Urine Random 24.3 mg/dL; Protein/Creatinine Ratio,Urine 0.412
[2022-12-24 13:59] LABS: Platelet Count 174 k/uL (150-450)
[2022-12-24 14:00] VITALS: BP 121/83; PULSE 88; RESP 16; TEMP 97.2
[2022-12-24 14:00] LABS: Large Platelets Present
--- NOTE | 2022-12-28 08:49 | P.MSEPDOC ---
Presenting Problems - Arrival Data Date of Arrival on Unit: 12/24/22 Time of Arrival on Unit: 12:00 Mode of Transport: Ambulatory - Complaint OB-Reason for Admission/Chief Complaint: PIH Comment: with written script Medical History - Information : 6 Para: 2 Term: 1 : 1 Abortions: Spontaneous or Elective: 3 Number of Living Children: 1 - Gestational Age Gestational Age by LACY (wks/days): 36 Weeks and 1 Days - History Comment: Gestational Hypertension Review of Systems - Review of Systems Constitutional: No problems Breast: No problems ENT: No problems Cardiovascular: No problems Respiratory: No problems Gastrointestinal: No problems Genitourinary: No problems Musculoskeletal: No problems Neurological: No problems Skin: No problems Vital Signs - Temperature Temperature: 97.2 F Temperature Source: Temporal Artery Scan - Pulse Right Sitting Pulse Rate: 88 Pulse Assessment Method: Automatic Cuff - Respirations Respiratory Rate: 16 Oxygen Delivery Method: Room Air O2 Sat by Pulse Oximetry: 97 - Blood Pressure Right Arm Sitting Blood Pressure: 121/83 Blood Pressure Mean: 95 Blood Pressure Source: Automatic Cuff Medical Screen Scoring - Uterine Contractions Frequency From (mins): 2 Frequency To (mins): 4 Duration From (seconds): 40 Duration To (seconds): 60 Intensity: Mild Resting: Soft to palpation - Assessment - Baby A Baseline FHR: 135 Heart Rate - NICHD Category: Category I (Normal) NST: Reactive Physician Notification - Physician Notified Physician Notified Date: 12/24/22 Physician Notified Time: 14:10 Physician: Mari Casillas Order Received: Yes Maternal Triage Index - Maternal Triage Index Presenting for scheduled procedure w/no complaint: No - Stat/Priority 1 Stat Priority 1: No - Urgent/Priority 2 Urgent Priority 2: No - Prompt/Priority 3 Prompt Priority 3: Yes Criteria Met for Priority 3: 36.1 Disposition - Disposition OB Disposition: Triage, Discharge to home, Written follow up instructions reviewed Discharge Date: 12/24/22 Discharge Time: 14:16 I agree with the RN Medical Screening Exam: Yes Physician's MSE Comment: I have neither seen nor examined the patient Case reviewed; plan agreed upon as documented in EMR&OBIX.: Yes Diagnosis: MATERNAL CARE FOR PROBLEM, UNSP, THIRD * DO NOT USE *
== END 2022-12-24 14:16 | disposition home or self-care (01) ==
LOC: FBPOP 12:00
PROVIDERS: ATTEND Obstetrics & Gynecology
DX: O13.3 Gestational [pregnancy-induced] hypertension without significant proteinuria, third trimester (principal); O36.93X1 Maternal care for fetal problem, unspecified, third trimester, fetus 1; Z3A.36 36 weeks gestation of pregnancy; Z91.040 Latex allergy status; Z88.8 Allergy status to other drugs, medicaments and biological substances; Z79.82 Long term (current) use of aspirin
CPT/HCPCS: 59025; 81003; 82565; 82570; 83615; 84156; 84450; 84460; 84520; 84550; 85025